=== PATIENT | male | born 1960 | race African-American/Black ===

== ENCOUNTER 2016-03-11 10:15 | Emergency (ER) | payer MEDICARE, MEDICAID ==
[2016-03-11 10:35] VITALS: BP 112/67
--- NOTE | 2016-03-11 10:36 | ER Document Report ---
ED Medical Screen (RME) - General Stated Complaint: BACK PAIN Notes: pt has a history of back pain due to possible lumbar spine disc herniation comes in today for worsening back pain. has been treated for pain management in [place] but stopped going fully ambulatory, denies urinary or stool incontinence, denies saddle anesthesia has been taking aleve and flexeril TRAVEL OUTSIDE OF THE [place] IN LAST 30 DAYS: No - Related Data Allergies/Adverse Reactions: No Known Allergies Allergy (Verified 12/03/14 09:53) Past Medical History - Past Medical History Cardiac Medical History: Reports: Hx Heart Attack, Hx Hypercholesterolemia, Hx Hypertension Pulmonary Medical History: Reports: Hx Asthma, Hx COPD Denies: Hx Pneumonia, Hx Tuberculosis Neurological Medical History: Reports: Hx Migraine Endocrine Medical History: Denies: Hx Diabetes Mellitus Type 1, Hx Diabetes Mellitus Type 2 Renal/ Medical History: Denies: Hx End Stage Renal Disease, Hx Epididymitis, Hx Hemodialysis, Hx Hydrocele, Hx Kidney Stones, Hx Peritoneal Dialysis, Hx Renal Insufficiency GI Medical History: Denies: Hx Diverticulitis, Hx Gastritis, Hx Gastroesophageal Reflux Disease Musculoskeltal Medical History: Reports Hx Arthritis, Reports Hx Musculoskeletal Deformity, Reports Hx Musculoskeletal Trauma Psychiatric Medical History: Reports: Hx Anxiety, Hx Depression - collar bone, thumb Traumatic Medical History: Reports: Hx Fractures Past Surgical History: Reports: Hx Orthopedic Surgery - right collar bone plates /screws, left hand - Immunizations Immunizations up to date: Yes Hx Diphtheria, Pertussis, Tetanus Vaccination: Yes
[2016-03-11] MEDS ORDERED: KETOROLAC TROMETHAMINE 60 MG/2 ML SDV IM ONE (11:28)
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
== END 2016-03-11 11:50 | disposition home or self-care (01) ==
LOC: ER 10:15
DX: M54.9 Dorsalgia, unspecified (principal); G89.29 Other chronic pain; Z87.891 Personal history of nicotine dependence
CPT/HCPCS: 99283; 96372; J1885

== ENCOUNTER 2016-05-01 07:54 | Emergency (ER) | payer MEDICARE, MEDICAID ==
[2016-05-01 08:03] VITALS: BP 118/78
[2016-05-01] MEDS ORDERED: CEPHALEXIN 500 MG CAPSULE PO ONE (08:17)
[2016-05-01] MEDS ORDERED: SULFAMETHOXAZOLE/TRIMETHOPRIM 800-160 MG TABLET PO ONE (08:17)
[2016-05-01] MEDS ORDERED: HYDROCODONE/ACETAMINOPHEN 5-325 MG TABLET PO ONE (08:17)
--- NOTE | 2016-05-01 08:21 | ER Document Report ---
HPI - HPI Patient complains to provider of: right-sided facial pain Onset: Other - 3 days Onset/Duration: Gradual Quality of pain: Achy Pain Level: 4 Context: Patient complains of right-sided facial pain for the past 3 days. Patient denies any fever or dental problems. Patient does complain of right ear pain and tenderness to right lateral side of neck. Associated Symptoms: Other. denies: Fever - Right facial pain Exacerbated by: Denies Relieved by: Denies Similar symptoms previously: No Recently seen / treated by doctor: No - ROS ROS below otherwise negative: Yes Systems Reviewed and Negative: Yes All other systems reviewed and negative - CONSTITUTIONAL Constitutional: DENIES: Fever - EENT EENT: REPORTS: Ear Pain. DENIES: Sore Throat Notes: Right-sided facial pain, right lateral neck tenderness - NEURO Neurology: DENIES: Headache, Weakness - RESPIRATORY Respiratory: DENIES: Trouble Breathing, Coughing - GASTROINTESTINAL Gastrointestinal: DENIES: Nausea, Patient vomiting - REPRODUCTIVE Reproductive: DENIES: : - MUSCULOSKELETAL Musculoskeletal: REPORTS: Neck Pain - Right lateral neck - DERM Skin Color: Normal Notes: Tender skin lesion to right cheek Past Medical History - General Information source: Patient - Social History Smoking Status: Current Every Day Smoker Chew tobacco use (# tins/day): No Frequency of alcohol use: Occasional Drug Abuse: None Occupation: none Lives with: Family Family History: Arthritis, CAD, CVA, DM, Hyperlipidemia, Hypertension Patient has suicidal ideation: No Patient has homicidal ideation: No - Past Medical History Cardiac Medical History: Reports: Hx Heart Attack, Hx Hypercholesterolemia, Hx Hypertension Pulmonary Medical History: Reports: Hx Asthma, Hx COPD Denies: Hx Pneumonia, Hx Tuberculosis Neurological Medical History: Reports: Hx Migraine Endocrine Medical History: Denies: Hx Diabetes Mellitus Type 1, Hx Diabetes Mellitus Type 2 Renal/ Medical History: Denies: Hx End Stage Renal Disease, Hx Epididymitis, Hx Hemodialysis, Hx Hydrocele, Hx Kidney Stones, Hx Peritoneal Dialysis, Hx Renal Insufficiency GI Medical History: Reports: Hx Gastroesophageal Reflux Disease. Denies: Hx Diverticulitis, Hx Gastritis Musculoskeltal Medical History: Reports Hx Arthritis, Reports Hx Musculoskeletal Deformity, Reports Hx Musculoskeletal Trauma Psychiatric Medical History: Reports: Hx Anxiety Traumatic Medical History: Reports: Hx Fractures Past Surgical History: Reports: Hx Orthopedic Surgery - right collar bone plates /screws, left hand - Immunizations Immunizations up to date: Yes Hx Diphtheria, Pertussis, Tetanus Vaccination: Yes Vertical Provider Document - CONSTITUTIONAL Agree With Documented VS: Yes Exam Limitations: No Limitations General Appearance: WD/WN, No Apparent Distress - INFECTION CONTROL TRAVEL OUTSIDE OF THE [place] IN LAST 30 DAYS: No - HEENT HEENT: Atraumatic, Normal ENT Exam, Normocephalic. negative: Tympanic Membrane Red, Tympanic Membrane Bulging - NECK Neck: Lymphadenopathy-Right - Right upper posterior cervical chain lymphadenopathy - RESPIRATORY Respiratory: Breath Sounds Normal, No Respiratory Distress O2 Sat by Pulse Oximetry: 99 - CARDIOVASCULAR Cardiovascular: Regular Rate, Regular Rhythm - BACK Back: Normal Inspection - MUSCULOSKELETAL/EXTREMETIES Musculoskeletal/Extremeties: MAEW - NEURO Level of Consciousness: Awake, Alert, Appropriate Motor/Sensory: No Motor Deficit - DERM Integumentary: Warm, Dry Notes: Tender, erythematous indurated area to right cheek area concerning for developing abscess. No area of fluctuance. Course - Vital Signs Vital signs: Temp Pulse Resp BP Pulse Ox 97.8 F 95 14 118/78 99 05/01/16 07:57 05/01/16 07:57 05/01/16 07:57 05/01/16 07:57 05/01/16 07:57 Discharge - Discharge Clinical Impression: Cervical lymphadenopathy Skin abscess Qualifiers: Site of cutaneous abscess: face Qualified Code(s): L02.01 - Cutaneous abscess of face Condition: Stable Disposition: HOME, SELF-CARE Instructions: Abscess ([facility]), Oral Narcotic Medication ([facility]), Trimethoprim- Sulfa ([facility]), Cephalexin ([facility]), Warm Packs ([facility]) Additional Instructions: Return immediately for any new or worsening symptoms Followup with your primary care provider, call tomorrow to make a followup appointment Prescriptions: Cephalexin Monohydrate [Keflex 500 mg Capsule] 500 mg PO Q6H 5 Days Hydrocodone/Acetaminophen [[place] 5-325 Tablet] 1 each PO Q4 PRN #15 tablet PRN Reason: Sulfamethoxazole/Trimethoprim [Bactrim Ds Tablet] 1 each PO BID #20 tablet Referrals: ARRON GAXIOLA MD [Primary Care Provider] - Follow up as needed
== END 2016-05-01 08:25 | disposition home or self-care (01) ==
LOC: ER 07:54
DX: L02.01 Cutaneous abscess of face (principal); R59.0 Localized enlarged lymph nodes; R51 Headache; H92.01 Otalgia, right ear; M54.2 Cervicalgia; I25.2 Old myocardial infarction; I10 Essential (primary) hypertension; J44.9 Chronic obstructive pulmonary disease, unspecified; J45.909 Unspecified asthma, uncomplicated; F17.200 Nicotine dependence, unspecified, uncomplicated
CPT/HCPCS: 99283; A9270 ×3

== ENCOUNTER → 2016-08-25 | Outpatient (CLI) | payer MEDICARE, MEDICAID ==
--- NOTE | 2016-08-25 12:45 | RADIOLOGY REPORT (SQ) ---
EXAM DESCRIPTION: LUMBAR SPINE COMPLETE COMPLETED DATE/TIME: 08/25/2016 12:25 pm REASON FOR STUDY: PAIN IN RT SHOULDER; PAIN IN THORACIC AND LOW BACK PAIN M25.511 PAIN IN RIGHT MARY JO ULDER M54.6 PAIN IN THORACIC SPINE M54.5 LOW BACK PAIN COMPARISON: Lumbar spine films 03/28/2015 NUMBER OF VIEWS: Five views including obliques. TECHNIQUE: AP, lateral, oblique, and sacral radiographic images acquired of the lumbar spine. LIMITATIONS: None. FINDINGS: MINERALIZATION: Osteopenic SEGMENTATION: Normal. No transitional anatomy. ALIGNMENT: Normal. VERTEBRAE: Maintained height. No fracture or worrisome bone lesion. DISCS: Disc space height maintained. Minimal anterior osteophyte formation at L2-3 and L3-4. POSTERIOR ELEMENTS: Pedicles and facets are intact. No pars defect or posterior arch defects. HARDWARE: None in the spine. PARASPINAL SOFT TISSUES: Normal. PELVIS: Intact as visualized. No fractures or worrisome bone lesions. SI joints intact. OTHER: No other significant finding. IMPRESSION: NORMAL 5 VIEW LUMBAR SPINE. TECHNICAL DOCUMENTATION: JOB ID: [id number] [employer]- All Rights Reserved
--- NOTE | 2016-08-25 12:46 | RADIOLOGY REPORT (SQ) ---
EXAM DESCRIPTION: T SPINE AP/LAT COMPLETED DATE/TIME: 08/25/2016 12:25 pm REASON FOR STUDY: PAIN IN RT SHOULDER; PAIN IN THORACIC AND LOW BACK PAIN M25.511 PAIN IN RIGHT MARY JO ULDER M54.6 PAIN IN THORACIC SPINE M54.5 LOW BACK PAIN COMPARISON: 03/28/2015 thoracic spine films Lumbar spine films same date NUMBER OF VIEWS: Two views. TECHNIQUE: AP and lateral radiographic images acquired of the thoracic spine. LIMITATIONS: None. FINDINGS: MINERALIZATION: Osteopenic ALIGNMENT: Normal. No scoliosis. VERTEBRAE: No fracture or bone lesion. Maintained height, normal segmentation. DISCS: No significant loss of height or significant narrowing. No large osteophytes. HARDWARE: None in the spine. MEDIASTINUM AND SOFT TISSUES: Normal heart size and aortic contour. No soft tissue abnormality. VISUALIZED LUNG DU: Clear. OTHER: No other significant finding. IMPRESSION: NO SIGNIFICANT RADIOGRAPHIC FINDING IN THE THORACIC SPINE. TECHNICAL DOCUMENTATION: JOB ID: [id number] [employer]- All Rights Reserved
--- NOTE | 2016-08-25 12:50 | RADIOLOGY REPORT (SQ) ---
EXAM DESCRIPTION: SHOULDER RIGHT 2 OR MORE VIEWS COMPLETED DATE/TIME: 08/25/2016 12:25 pm REASON FOR STUDY: PAIN IN RT SHOULDER; PAIN IN THORACIC AND LOW BACK PAIN M25.511 PAIN IN RIGHT MARY JO ULDER M54.6 PAIN IN THORACIC SPINE M54.5 LOW BACK PAIN COMPARISON: Chest films 12/03/2014 NUMBER OF VIEWS: Three views. TECHNIQUE: Internal rotation, external rotation, and Y view images acquired of the right shoulder. LIMITATIONS: None. FINDINGS: MINERALIZATION: Osteopenic BONES: No acute fracture. Old healed distal right clavicle fracture with fixation plate and screws. The most distal anchoring screw has loosened, and now protrudes about 2 mm above the superior edge o f the plate, marked with an arrow on the AP view JOINTS: No glenohumeral dislocation. No acromioclavicular joint widening VISUALIZED LUNGS AND RIBS: No pneumothorax. Old healed right 3rd rib fracture. SOFT TISSUES: No radiopaque foreign body. OTHER: No other significant finding. IMPRESSION: No acute fracture or malalignment. Distal right clavicle fracture post ORIF. The distal most screw appears to have loosened, and now pr otrudes superiorly above the distal end of the plate by 2 mm TECHNICAL DOCUMENTATION: JOB ID: [id number] [employer]- All Rights Reserved
--- NOTE | 2016-08-25 12:51 | RADIOLOGY REPORT (SQ) ---
EXAM DESCRIPTION: CLAVICLE RIGHT COMPLETED DATE/TIME: 08/25/2016 12:25 pm REASON FOR STUDY: PAIN IN RT SHOULDER; PAIN IN THORACIC AND LOW BACK PAIN M25.511 PAIN IN RIGHT MARY JO ULDER M54.6 PAIN IN THORACIC SPINE M54.5 LOW BACK PAIN COMPARISON: Right shoulder films same date, chest film 12/03/2014 NUMBER OF VIEWS: Two views. TECHNIQUE: Frontal and angled images were acquired of the right clavicle. LIMITATIONS: None. FINDINGS: MINERALIZATION: Osteopenic BONES: Old healed distal right clavicle fracture with fixation plate. Distal most screw dorsally has loosened, and now protrudes superiorly, 2 mm above the remainder the plate. This is marked with an arrow on the AP view. Old healed right 3rd rib fracture SOFT TISSUES: No obvious swelling or foreign body. OTHER: No acromioclavicular joint bulky bony spurring or widening. IMPRESSION: Old right distal clavicle fracture post ORIF. TECHNICAL DOCUMENTATION: JOB ID: [id number] [employer]- All Rights Reserved
== END ==
LOC: OD 11:50
PROVIDERS: ATTEND Physician Assistant
DX: M25.511 Pain in right shoulder (principal); M54.6 Pain in thoracic spine; M54.5 Low back pain
CPT/HCPCS: 72070; 72110

== ENCOUNTER 2016-12-07 14:44 | Emergency (ER) | payer MEDICARE, MEDICAID ==
[2016-12-07] MEDS ORDERED: OXYCODONE-ACETAMINOPHEN 5-325 MG TABLET PO ONE (15:05)
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
[2016-12-07 16:24] VITALS: BP 123/79
== END 2016-12-07 16:27 | disposition home or self-care (01) ==
LOC: ER 14:44
DX: S39.012A Strain of muscle, fascia and tendon of lower back, initial encounter (principal); S16.1XXA Strain of muscle, fascia and tendon at neck level, initial encounter; M54.9 Dorsalgia, unspecified; X58.XXXA Exposure to other specified factors, initial encounter; Y93.55 Activity, bike riding
CPT/HCPCS: 99284; 72100; 72070; 72125; A9270

== ENCOUNTER → 2017-01-25 | Outpatient (CLI) | payer MEDICARE, MEDICAID ==
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
== END ==
LOC: RAD 11:05
PROVIDERS: ATTEND Physician Assistant
DX: M25.512 Pain in left shoulder (principal)
CPT/HCPCS: 71020

== ENCOUNTER → 2017-03-23 | Outpatient (CLI) | payer MEDICARE, MEDICAID ==
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
== END ==
LOC: RAD 13:11
PROVIDERS: ATTEND Physician Assistant
DX: M25.512 Pain in left shoulder (principal)

== ENCOUNTER → 2017-09-14 | Outpatient (CLI) | payer MEDICARE, MEDICAID ==
--- NOTE | 2017-09-15 09:16 | RADIOLOGY REPORT (SQ) ---
EXAM DESCRIPTION: MRI LT UPPER JOINT WITHOUT COMPLETED DATE/TIME: 09/14/2017 5:19 pm REASON FOR STUDY: LEFT SHOULDER PAIN M25.512 PAIN IN LEFT SHOULDER COMPARISON: CT left shoulder 03/23/2017 TECHNIQUE: Left shoulder images acquired and stored on PACS. Multiplanar imaging to include fat sens itive sequences such as T1, water sensitive sequences such as FST2/STIR, cartilage sensitive sequence s such as FSPD/gradient-echo sequences. LIMITATIONS: None. FINDINGS: BONE MARROW AND CORTEX: No worrisome bone lesions or marrow replacement. No occult fractur es. JOINT OR BURSAL EFFUSION: No glenohumeral joint effusion. Trace fluid in the subacromial/subdeltoid bursa. GLENO-HUMERAL ARTICULATION: Normal articulation. No subluxation. No cystic change. No osteophytes or cartilage loss. ACROMION AND AC JOINT: Type 2 acromion with very mild acromioclavicular joint bony spurring. There i s an os acromiale with mild edema at its articulation with the remainder of the acromion best shown o n axial images 1-4 and coronal images 12-14. Subacromial space maintained. ROTATOR CUFF AND INTERVAL: Small full-thickness tear posterior edge supraspinatus tendon on sagittal image 16 and coronal images 11-14. Remainder of the rotator cuff is intact. No rotator interval tear. No rotator interval thickening to suggest adhesive capsulitis. LABRUM AND BICEPS LABRAL COMPLEX: Intra-articular long head biceps tendon is intact. Small superio r labral tear extending anteriorly best shown on axial images 7 through 9. No paralabral cyst. REMAINDER OF LABRUM AND IGHL : No gross tear or paralabral cyst formation. Labral evaluation is less than optimal without joint distention. No thickening of IGHL to suggest adhesive capsulitis. PERIARTICULAR AND ADJACENT SOFT TISSUES: No masses or abnormal nodes. OTHER: No other significant finding. IMPRESSION: Small full-thickness tear distal aspect supraspinatus tendon. Small superior labral tear. TECHNICAL DOCUMENTATION: JOB ID: [id number] [employer]- All Rights Reserved Reading location - IP/workstation name: [facility]
== END ==
LOC: RAD 16:14
PROVIDERS: ATTEND Physician Assistant
DX: M25.512 Pain in left shoulder (principal); M75.122 Complete rotator cuff tear or rupture of left shoulder, not specified as traumatic

== ENCOUNTER → 2018-11-10 | Outpatient (CLI) | payer MEDICARE, MEDICAID ==
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
== END ==
LOC: OD 11:39
PROVIDERS: ATTEND Physician Assistant
DX: M25.512 Pain in left shoulder (principal)
CPT/HCPCS: 71046

== ENCOUNTER 2019-12-02 08:54 | Emergency (ER) | payer MEDICARE, MEDICAID ==
[2019-12-02] MEDS ORDERED: HYDROCODONE/ACETAMINOPHEN 5-325 MG TABLET PO ONE (09:11)
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
--- NOTE | 2019-12-02 09:35 | RADIOLOGY REPORT (SQ) ---
EXAM DESCRIPTION: HAND RIGHT 3 VIEWS IMAGES COMPLETED DATE/TIME: 12/02/2019 9:20 am REASON FOR STUDY: r 2,3rd fingers closed in trunk COMPARISON: None. NUMBER OF VIEWS: Three views right hand. LIMITATIONS: None. FINDINGS: There is no acute or significant bone, joint or soft tissue abnormality. OTHER: No other significant finding. IMPRESSION: NORMAL STUDY. TECHNICAL DOCUMENTATION: JOB ID: [id number] Reading location - IP/workstation name: [email or web address]
[2019-12-02 10:26] VITALS: BP 108/77
== END 2019-12-02 10:35 | disposition home or self-care (01) ==
LOC: ER 08:54
DX: S61.212A Laceration without foreign body of right middle finger without damage to nail, initial encounter (principal); S69.91XA Unspecified injury of right wrist, hand and finger(s), initial encounter; W23.0XXA Caught, crushed, jammed, or pinched between moving objects, initial encounter; F17.200 Nicotine dependence, unspecified, uncomplicated; I25.2 Old myocardial infarction; E78.00 Pure hypercholesterolemia, unspecified; I10 Essential (primary) hypertension
CPT/HCPCS: 99284; 73130; A9270